=== PATIENT | female | born 1945 | race Caucasian/White ===

== ENCOUNTER 2018-07-28 18:50 | Emergency (ER) | payer MEDICARE, BC ==
[2018-07-28 18:59] VITALS: BP 180/70
[2018-07-28] MEDS ORDERED: Lidocaine 1% 20 ML MDV INJECT ONE (19:15)
[2018-07-28] MEDS ORDERED: Bacitracin/Neomycin/Polymyxin B Oint 0.9 GM U/D Packet TOP ONE (19:15)
[2018-07-28] MEDS ORDERED: Diphtheria,Pertussis(Acell),Tetanus Vaccine 0.5 ML Syringe IM ONE (19:15)
--- NOTE | 2018-07-28 19:43 | EDM.PDOC ---
ED [facility] GENERAL MEDICAL PROBLEM - General Chief Complaint: Laceration Stated Complaint: right lower leg lacertation Time Seen by Provider: 07/28/18 19:10 Source of Information: Reports: Patient History Limitations: Reports: No Limitations - History of Present Illness INITIAL COMMENTS - FREE TEXT/NARRATIVE: Patient presents with laceration to right rodriguez. States slipped getting out of her car and hit her rodriguez on the car door. States did bleed considerably enroute here but admits "she bleeds very easy". Is only on a low dose aspirin daily. Expresses concern as she has had difficulty with wounds healing in the past. Unknown last tetanus. Onset: Today, Sudden Duration: Minutes: Location: Reports: Lower Extremity, Right Quality: Reports: Throbbing Severity: Moderate Context: Reports: Trauma Associated Symptoms: Reports: No Other Symptoms Right Leg Pain Score (Numeric/FACES): 6 - Related Data Allergies Allergy/AdvReac Type Severity Reaction Status Date / Time lisinopril Allergy Cannot Verified 07/28/18 19:01 Remember Penicillins Allergy Cannot Verified 07/28/18 19:01 Remember sauerkraut Allergy Hives Uncoded 07/28/18 19:01 Home Meds: Home Meds Aspirin [Halfprin] 81 mg PO DAILY 07/28/18 [History] Calcium Carbonate/Vitamin D3 [Calcium 600 + Vit D 200] 1 each PO DAILY 07/28/18 [History] Cholecalciferol (Vitamin D3) [Vitamin D3] 1,000 units PO DAILY 07/28/18 [History ] Gabapentin [Neurontin] 200 mg PO 1200 07/28/18 [History] Gabapentin [Neurontin] 600 mg PO TID 07/28/18 [History] Losartan Potassium 100 mg PO DAILY 07/28/18 [History] Oxybutynin 5 mg PO DAILY 07/28/18 [History] atorvaSTATin [Lipitor] 10 mg PO BEDTIME 07/28/18 [History] hydroCHLOROthiazide [Hydrochlorothiazide] 25 mg PO DAILY 07/28/18 [History] metFORMIN HCl [Metformin HCl] 1,000 mg PO BID 07/28/18 [History] Past Medical History Cardiovascular History: Reports: Hypertension (Please see nurses notes for further PMH, FH and Social History) Neurological History: Reports: Neuropathy, Diabetic Endocrine/Metabolic History: Reports: Diabetes, Type II Social & Family History - Tobacco Use Smoking Status *Q: Current Every Day Smoker ED ROS GENERAL - Review of Systems Review Of Systems: See Below Constitutional: Reports: No Symptoms Skin: Reports: Wound Neurological: Reports: No Symptoms Psychiatric: Reports: No Symptoms ED EXAM, SKIN/RASH Exam: See Below Exam Limited By: No Limitations General Appearance: Alert, WD/WN, No Apparent Distress Neurological: Alert, Oriented Skin: Wound/Incision Location, Skin: Other Characteristics: Linear ED SKIN PROCEDURES - Laceration/Wound Repair Right Leg Lac/Wound length In cm: 4 Appearance: Superficial, Linear Distal NVT: Neuro & Vascular Intact Anesthetic Type: Local Local Anesthesia - Lidocaine (Xylocaine): 1% Plain Local Anesthetic Volume: 4cc Exploration/Debridement/Repair: Explored to Base Closed with: Sutures Suture Size: 4-0 Suture Type: Interrupted, Simple Suture Size: 4-0 # of Sutures: 8 Tetanus Status Addressed: Yes Complications: No Course - Vital Signs Last Recorded V/S: Last Vital Signs Temp 97.1 F 07/28/18 18:52 Pulse 82 07/28/18 18:52 Resp 16 07/28/18 18:52 BP 180/70 H 07/28/18 18:52 Pulse Ox 98 07/28/18 18:52 - Orders/Labs/Meds Orders: Active Orders 24 hr Category Date Time Status Vaccines to be Administered [RC] PER UNIT ROUTINE Care 07/28/18 19:16 Active Meds: Medications Discontinued Medications Generic Name Dose Route Start Last Admin Trade Name Freq PRN Reason Stop Dose Admin Diphtheria/Tetanus/Acell Pertussis 0.5 ml 07/28/18 19:15 07/28/18 19:42 Adacel IM 07/28/18 19:16 0.5 ml .ONCE ONE Administration Lidocaine HCl 20 ml 07/28/18 19:15 07/28/18 19:22 Xylocaine 1% INJECT 07/28/18 19:16 20 ml ONETIME ONE Administration Neomycin/Polymyxin/Bacitracin 1 each 07/28/18 19:15 07/28/18 19:22 Triple Antibiotic Oint TOP 07/28/18 19:16 1 each ONETIME ONE Administration Departure - Departure Time of Disposition: 19:40 Disposition: Home, Self-Care 01 Condition: Good Clinical Impression: Broken skin, Laceration of right lower extremity - Discharge Information *PRESCRIPTION DRUG MONITORING PROGRAM REVIEWED*: No *COPY OF PRESCRIPTION DRUG MONITORING REPORT IN PATIENT LIZY: No Instructions: Laceration Care, Adult, [id number] Forms: ED Department Discharge Additional Instructions: 1. Keep leg elevated tonight 2. Ice pack to area frequently tonight 3. Change bandage after 24 hours unless becomes saturated 4. Wound care instruction~ notify us of any redness, swelling, increased drainage or pain 5. Sutures out in 10 days 6. Call with any questions or concerns. - My Orders Last 24 Hours: My Active Orders 07/28/18 19:16 Vaccines to be Administered [RC] PER UNIT ROUTINE - Assessment/Plan Last 24 Hours: My Active Orders 07/28/18 19:16 Vaccines to be Administered [RC] PER UNIT ROUTINE
== END 2018-07-28 20:00 | disposition home or self-care (01) ==
LOC: CC.ED 18:50
DX: S81.811A Laceration without foreign body, right lower leg, initial encounter (principal); E11.40 Type 2 diabetes mellitus with diabetic neuropathy, unspecified; F17.290 Nicotine dependence, other tobacco product, uncomplicated; W22.8XXA Striking against or struck by other objects, initial encounter; Z88.8 Allergy status to other drugs, medicaments and biological substances; Z88.0 Allergy status to penicillin; Z79.82 Long term (current) use of aspirin; Z79.899 Other long term (current) drug therapy; Z79.84 Long term (current) use of oral hypoglycemic drugs
CPT/HCPCS: 12002; 90471; 90715; 99282; 99283

== ENCOUNTER 2019-01-03 14:53 | Emergency (ER) | payer MEDICARE, BC ==
--- NOTE | 2019-01-03 15:33 | EDM.PDOC ---
ED [facility] GENERAL MEDICAL PROBLEM - General Chief Complaint: Chest Pain Stated Complaint: CP Time Seen by Provider: 01/03/19 15:00 Source of Information: Reports: Patient History Limitations: Reports: No Limitations - History of Present Illness INITIAL COMMENTS - FREE TEXT/NARRATIVE: Cece is a pleasant 73 year old female who presents to the ED via [facility] with c/o an episode of chest pain, weakness, and diaphoresis. She reports she was sitting on a bar stool eating brunch, when she noticed her vision became "blurry and bright" and she became very sweaty. She reports she had some left sided chest pain. Apparently O2 was noted to be in upper 80s by bystander who has O2 sat machine. EMS was called. She reports she is feeling much better now. Does have slight left sided chest pain, but reports she is no longer having any other symptoms. 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 Reports she had pizza for supper last night and did have pretty significant GERD. She reports she takes Pepcid COmplete for this when needed. Onset: Today, Sudden Duration: Resolved Prior to Arrival Location: Reports: Head, Chest Associated Symptoms: Reports: Chest Pain, Diaphoresis, Shortness of Breath, Weakness. Denies: Confusion, Cough, cough w sputum, Fever/Chills, Headaches, Loss of Appetite, Malaise, Nausea/Vomiting, Rash, Seizure, Syncope Chest Pain Score (Numeric/FACES): 3 - Related Data Allergies Allergy/AdvReac Type Severity Reaction Status Date / Time lisinopril Allergy Cannot Verified 01/03/19 14:56 Remember Penicillins Allergy Cannot Verified 01/03/19 14:56 Remember sauerkraut Allergy Hives Uncoded 01/03/19 14:56 Home Meds: Home Meds Aspirin [Halfprin] 81 mg PO DAILY 07/28/18 [History] Calcium Carbonate/Vitamin D3 [Calcium 600 + Vit D 200] 1 each PO DAILY 07/28/18 [History] Cholecalciferol (Vitamin D3) [Vitamin D3] 1,000 units PO DAILY 07/28/18 [History ] Gabapentin [Neurontin] 600 mg PO BID 07/28/18 [History] Losartan Potassium 100 mg PO DAILY 07/28/18 [History] Oxybutynin 5 mg PO DAILY 07/28/18 [History] atorvaSTATin [Lipitor] 10 mg PO BEDTIME 07/28/18 [History] metFORMIN HCl [Metformin HCl] 1,000 mg PO BID 07/28/18 [History] Fluocinonide [Lidex 0.05% Crm] 0.05 mg TOP BID 01/03/19 [History] Furosemide 20 mg PO DAILY 01/03/19 [History] predniSONE [Prednisone] 30 mg PO DAILY 01/03/19 [History] Past Medical History HEENT History: Reports: Cataract Cardiovascular History: Reports: High Cholesterol, Hypertension [employer] OPERATOR History: Reports: Musculoskeletal History: Reports: Neck Pain, Chronic Neurological History: Reports: Neuropathy, Diabetic Endocrine/Metabolic History: Reports: Diabetes, Type II Dermatologic History: Reports: Other (See Below) Other Dermatologic History: EBA - Past Surgical History HEENT Surgical History: Reports: Cataract Surgery GI Surgical History: Reports: Cholecystectomy Female Surgical History: Reports: Section, D&C Social & Family History - Tobacco Use Smoking Status *Q: Current Every Day Smoker Years of Tobacco use: 50 Packs/Tins Daily: 1 - Caffeine Use Caffeine Use: Reports: Coffee ED ROS GENERAL - Review of Systems Review Of Systems: ROS reveals no pertinent complaints other than HPI. ED EXAM, GENERAL - Physical Exam Exam: See Below Exam Limited By: No Limitations General Appearance: Alert, WD/WN, No Apparent Distress Eye Exam: Bilateral Eye: EOMI, Normal Fundi, Normal Inspection, PERRL Ears: Normal External Exam, Normal Canal, Hearing Grossly Normal, Normal TMs Nose: Normal Inspection, Normal Mucosa, No Blood Throat/Mouth: Normal Inspection, Normal Lips, Normal Teeth, Normal Gums, Normal Oropharynx, Normal Voice, No Airway Compromise Head: Atraumatic, Normocephalic Neck: Normal Inspection, Supple, Non-Tender, Full Range of Motion Respiratory/Chest: No Respiratory Distress, Lungs Clear, No Accessory Muscle Use , Chest Non-Tender, Decreased Breath Sounds Cardiovascular: Normal Peripheral Pulses, Regular Rate, Rhythm, No Edema, No Gallop, No JVD, No Murmur, No Rub GI/Abdominal: Normal Bowel Sounds, Soft, No Organomegaly, No Distention, No Abnormal Bruit, No Mass, Tender (tenderness to epigastric area) Back Exam: Normal Inspection, Full Range of Motion. No: CVA Tenderness (L), CVA Tenderness (R) Extremities: Normal Inspection, Normal Range of Motion, Non-Tender, Normal Capillary Refill, No Pedal Edema Neurological: Alert, Oriented, CN II-XII Intact, Normal Cognition, Normal Gait, Normal Reflexes, No Motor/Sensory Deficits Psychiatric: Normal Affect, Normal Mood Skin Exam: Warm, Dry, Intact Lymphatic: No Adenopathy Course - Vital Signs Last Recorded V/S: Last Vital Signs Temp 96.4 F 01/03/19 14:58 Pulse 66 01/03/19 15:24 Resp 16 01/03/19 15:24 BP 122/78 01/03/19 15:39 Pulse Ox 97 01/03/19 15:24 - Orders/Labs/Meds Orders: Active Orders 24 hr Category Date Time Status Chest 2V [CR] Stat Exams 01/03/19 15:02 Taken Labs: Laboratory Tests 01/03/19 01/03/19 01/03/19 Range/Units 15:12 15:12 15:12 WBC 14.3 H (5.0-10.0) 10^3/uL RBC 4.59 (4.00-5.50) 10^6/uL Hgb 15.0 (12.0-16.0) g/dL Hct 43.0 (37.0-47.0) % MCV 93.7 (82.0-94.0) fL MCH 32.7 H (27.0-32.0) pg MCHC 34.9 (33.0-38.0) g/dL RDW Coeff of Dirk 13.6 (11.0-15.0) % Plt Count 269 (150-400) 10^3/uL Neut % (Auto) 72.9 (35-85) % Lymph % (Auto) 17.1 (10-55) % [place] % (Auto) 8.9 (0-16) % Eos % (Auto) 0.8 (0-5) % Baso % (Auto) 0.3 (0-3) % Neut # (Auto) 10.43 H (1.80-7.00) 10^3/uL Lymph # (Auto) 2.44 (1.00-4.80) 10^3/uL [place] # (Auto) 1.27 H (0.00-0.80) 10^3/uL Eos # (Auto) 0.11 (0.00-0.45) 10^3/uL Baso # (Auto) 0.04 10^3/uL PT 9.6 L (9.7-12.3) SEC INR 0.93 (0.92-1.18) Sodium 133 L (136-145) mEq/L Potassium 4.6 (3.5-5.0) mEq/L Chloride 96 L (98-106) mEq/L Carbon Dioxide 29 (21-32) mmol/L BUN 20 H (7-18) mg/dL Creatinine 1.2 H (0.6-1.0) mg/dL Est Cr Clr Drug Dosing 44.29 mL/min Estimated GFR (MDRD) 44 L (>=60) mL/min Glucose 135 H (75-99) mg/dL Calcium 10.2 H (8.4-10.1) mg/dL Lactate Dehydrogenase 161 (100-190) U/L Creatine Kinase 66 (21-215) U/L Troponin I < 0.017 (0.00-0.06) ng/mL Meds: Medications Discontinued Medications Generic Name Dose Route Start Last Admin Trade Name Freq PRN Reason Stop Dose Admin Sodium Chloride 1,000 mls @ 999 mls/hr 01/03/19 15:44 01/03/19 16:14 Normal Saline IV 01/03/19 16:44 Not Given .BOLUS ONE Sodium Chloride 500 mls @ 999 mls/hr 01/03/19 15:52 01/03/19 16:02 Normal Saline IV 01/03/19 16:14 999 mls/hr .BOLUS ONE Administration Sodium Chloride Confirm 01/03/19 15:42 01/03/19 16:14 Normal Saline Administered 01/03/19 15:43 Not Given Dose 500 mls @ as directed .ROUTE .STK-MED ONE - Re-Assessments/Exams Free Text/Narrative Re-Assessment/Exam: 01/03/19 15:59 Discussed lab, EKG, and CXR results with patient. Labs stable except mildly decreased sodium and chloride. CXR no acute findings. EKG NSR. Recommend patient stay for 1 L NS bolus. Does not wish to stay. Patient agreeable to 500 mL bolus. Will discharge home following infusion. Departure - Departure Time of Disposition: 16:44 Disposition: Home, Self-Care 01 Condition: Good Clinical Impression: Vasovagal episode, Dehydration, GERD (gastroesophageal reflux disease) Instructions: Dehydration, Adult, [id number] Referrals: Toya Perez MD [Primary Care Provider] - Forms: ED Department Discharge Additional Instructions: - Rest and take it easy today - Drink at least 64 oz water daily - Recommend starting omeprazole (Prilosec) daily while on prednisone - Recommend follow up with PCP in 1 week to recheck labs - Return to ED for any emergent needs - My Orders Last 24 Hours: My Active Orders 01/03/19 15:02 Chest 2V [CR] Stat - Assessment/Plan Last 24 Hours: My Active Orders 01/03/19 15:02 Chest 2V [CR] Stat
[2019-01-03 15:37] LABS: CHLORIDE,CL 96 mEq/L (98-106); SODIUM,NA 133 mEq/L (136-145)
[2019-01-03] MEDS: Sodium Chloride 0.9% 500 ML IV ONE (16:02)
[2019-01-03] MEDS: Sodium Chloride 0.9% 500 ML ONE (16:14)
[2019-01-03] MEDS: Sodium Chloride 0.9% 1,000 ML IV ONE (16:14)
[2019-01-03 16:16] VITALS: BP 122/78
== END 2019-01-03 16:45 | disposition home or self-care (01) ==
LOC: CC.ED 14:53
DX: K21.9 Gastro-esophageal reflux disease without esophagitis (principal); E86.0 Dehydration; F17.210 Nicotine dependence, cigarettes, uncomplicated; I10 Essential (primary) hypertension; E78.00 Pure hypercholesterolemia, unspecified; E11.40 Type 2 diabetes mellitus with diabetic neuropathy, unspecified; Z79.84 Long term (current) use of oral hypoglycemic drugs; Z79.82 Long term (current) use of aspirin; Z79.899 Other long term (current) drug therapy; Z88.0 Allergy status to penicillin; Z91.09 Other allergy status, other than to drugs and biological substances; Z91.018 Allergy to other foods
CPT/HCPCS: 36415; 71046; 80048; 82550; 83615; 84484; 85025; 85610; 93005; 99284; 99285-25; J7030

== ENCOUNTER 2019-02-03 18:51 | Inpatient (IN) | payer MEDICARE, BC ==
[2019-02-03] MEDS: Sodium Chloride 0.9% 1,000 ML IV SCH (22:14)
[2019-02-03] MEDS: Enoxaparin 40 MG/0.4 ML Syringe SUBCUT SCH (22:15)
[2019-02-03] MEDS: Nicotine 21 MG/24 Hr Patch TRDERM SCH (23:08)
[2019-02-04] MEDS: Sodium Chloride 0.9% 1,000 ML IV SCH ×2 (04:40→15:52)
[2019-02-04] MEDS: Ondansetron 4 MG Tab.DIS PO PRN ×3 (04:43→18:21)
[2019-02-04] MEDS: Pantoprazole 40 MG Tab.CR PO SCH (06:13)
[2019-02-04] MEDS: Nicotine 21 MG/24 Hr Patch TRDERM SCH (07:44)
[2019-02-04] MEDS: predniSONE 5 MG Tab PO SCH (07:45)
[2019-02-04] MEDS: Gabapentin 300 MG Cap PO SCH ×2 (07:45→20:14)
[2019-02-04] MEDS: Oxybutynin 5 MG Tab PO SCH (07:45)
[2019-02-04] MEDS ORDERED: Magnesium Sulfate/D5W 2 GM in Premix Bag 1 BAG IV ONE ×2 (08:38→16:40)
[2019-02-04] MEDS: Doxycycline 100 MG Tab PO SCH ×2 (08:54→20:15)
[2019-02-04] MEDS: TACROLIMUS TOP SCH ×2 (08:54→20:19)
[2019-02-04] MEDS: NIACINAMIDE 500 MG PO SCH ×3 (08:54→20:19)
[2019-02-04] MEDS ORDERED: Barium Sulfate Oral Susp 450 ML Bottle PO ONE (09:06)
[2019-02-04] MEDS ORDERED: Iopamidol 755 Mg/ML 200 ML Bottle IV ONE (09:06)
[2019-02-04] MEDS: Calcium Carbonate 500 MG Tab.Chew PO SCH (11:43)
--- NOTE | 2019-02-04 19:13 | PCM.PN ---
- General Info Date of Service: 02/04/19 Admission Dx/Problem (Free Text): Hyponatremia Subjective Update: Cece is a 73 year old female who was admitted to the hospital yesterday evening for hyponatremia. Had reportedly been dizzy/off balance since about Saturday. She reports she did have one fall where she face planted. She reports when she was ambulating it seemed as though she would just lean forward. She reports she has also had weakness, nausea, and vomiting. Has had occasional diarrhea. Reports she has had very decreased appetite and foods just don't taste good for some time now. Reports she does have chronic cough, which seems to be worsening. She has been doctoring for an autoimmune skin condition. Was started on metolazone a few months back after diagnosis of her skin disorder. Had previously been on Lasix, but this was switched to metolazone as there was concern this could be worsening her skin condition. She reports this morning she has had ongoing nausea. Does not have an appetite. Does admit to feeling very weak and unsteady. No significant abdominal pain, just a generalized achy stomach. She has been afebrile. Functional Status: Reports: Pain Controlled, Tolerating Diet, Ambulating, Urinating. Denies: New Symptoms - Review of Systems General: Reports: Weakness, Malaise. Denies: Fever, Appetite HEENT: Reports: No Symptoms Pulmonary: Reports: Shortness of Breath, Cough, Sputum. Denies: Pleuritic Chest Pain Cardiovascular: Reports: Dyspnea on Exertion, Lightheadedness. Denies: Chest Pain, Palpitations, Edema Gastrointestinal: Reports: Abdominal Pain, Decreased Appetite, Diarrhea, Nausea , Vomiting. Denies: Hematochezia, Melena Genitourinary: Reports: No Symptoms. Denies: Dysuria, Frequency, Urgency Musculoskeletal: Reports: No Symptoms Skin: Reports: Rash (bullus rash to BUE) Neurological: Reports: Dizziness, Weakness. Denies: Confusion, Headache, Numbness, Seizure, Syncope, Tingling, Difficulty Walking Psychiatric: Denies: Confusion - Patient Data Vitals - Most Recent: Last Vital Signs Temp 97.3 F 02/04/19 16:00 Pulse 61 02/04/19 16:00 Resp 16 02/04/19 16:00 BP 111/52 L 02/04/19 16:00 Pulse Ox 96 02/04/19 16:00 Weight - Most Recent: 229 lb 3.2 oz I&O - Last 24 Hours: Intake & Output 02/04/19 02/04/19 02/04/19 06:59 14:59 22:59 Intake Total 804 1000 Balance 804 1000 Lab Results Last 24 Hours: Laboratory Results - last 24 hr 02/04/19 02/04/19 02/04/19 Range/Units 07:00 07:31 15:03 Sodium 119 L* 117 L* (136-145) mEq/L Potassium 3.7 3.6 (3.5-5.0) mEq/L Chloride 82 L 82 L (98-106) mEq/L Carbon Dioxide 33 H 29 (21-32) mmol/L BUN 14 11 (7-18) mg/dL Creatinine 1.2 H 1.0 (0.6-1.0) mg/dL Est Cr Clr Drug Dosing 44.29 53.14 mL/min Estimated GFR (MDRD) 44 L 55 L (>=60) mL/min Glucose 83 110 H D (75-99) mg/dL POC Glucose 79 (75-105) mg/dl Calcium 9.1 8.4 (8.4-10.1) mg/dL Magnesium 1.1 L 1.5 L (1.8-2.4) mg/dL Med Orders - Current: Current Medications Acetaminophen (Tylenol) 650 mg PO Q4H PRN PRN Reason: Pain (Mild 1-3)/fever Aspirin (Halfprin) 81 mg PO BEDTIME [facility] Atorvastatin Calcium (Lipitor) 10 mg PO BEDTIME [facility] Calcium Carbonate/Glycine (Tums) 500 mg PO WITHLUNCH [facility] Last Admin: 02/04/19 11:43 Dose: 500 mg Doxycycline Monohydrate (Vibramycin) 100 mg PO BID [facility] Last Admin: 02/04/19 08:54 Dose: 100 mg Enoxaparin Sodium (Lovenox) 40 mg SUBCUT Q24H [facility] Last Admin: 02/03/19 22:15 Dose: 40 mg Gabapentin (Neurontin) 600 mg PO BID [facility] Last Admin: 02/04/19 07:45 Dose: 600 mg Losartan Potassium (Cozaar) 100 mg PO BEDTIME [facility] Nicotine (Habitrol) 21 mg TRDERM DAILY [facility] Last Admin: 02/04/19 07:44 Dose: 21 mg Ownmed Niacinamide [Niacin] 500 Mg 500 mg PO TID [facility] Last Admin: 02/04/19 14:06 Dose: 500 mg Ownemed Tacrolimus [Protopic ] 1 Applic 1 applic TOP BID [facility] Last Admin: 02/04/19 08:54 Dose: 1 applic Ondansetron HCl (Zofran Odt) 4 mg PO Q6H PRN PRN Reason: Nausea Last Admin: 02/04/19 18:21 Dose: 4 mg Oxybutynin Chloride (Oxybutynin) 5 mg PO DAILY [facility] Last Admin: 02/04/19 07:45 Dose: 5 mg Pantoprazole Sodium (Protonix) 40 mg PO ACBRK [facility] Last Admin: 02/04/19 06:13 Dose: 40 mg Prednisone (Prednisone) 5 mg PO DAILY [facility] Stop: 02/08/19 23:59 Last Admin: 02/04/19 07:45 Dose: 5 mg Discontinued Medications Barium Sulfate (Readi-Cat 2) 900 ml PO ONETIME ONE Stop: 02/04/19 09:07 Last Admin: 02/04/19 11:17 Dose: 900 ml Sodium Chloride (Normal Saline) 1,000 mls @ 125 mls/hr IV ASDIRECTED [facility] Last Admin: 02/04/19 15:52 Dose: 125 mls/hr Magnesium Sulfate/Dextrose 2 (gm/ Premix) 200 mls @ 100 mls/hr IV ONETIME ONE Stop: 02/04/19 10:37 Last Admin: 02/04/19 08:55 Dose: 100 mls/hr Magnesium Sulfate/Dextrose 2 (gm/ Premix) 200 mls @ 100 mls/hr IV ONETIME ONE Stop: 02/04/19 18:39 Last Admin: 02/04/19 16:52 Dose: 100 mls/hr Iopamidol (Isovue-370 (76%)) 160 ml IV ONETIME ONE Stop: 02/04/19 09:07 Last Admin: 02/04/19 11:17 Dose: 160 ml - Exam Quality Assessment: DVT Prophylaxis General: Alert, Oriented, No Acute Distress HEENT: Pupils Equal, Pupils Reactive, EOMI, Mucous Membr. Moist/[place] Neck: Supple Lungs: Decreased Breath Sounds, Wheezing Cardiovascular: Regular Rate, Regular Rhythm GI/Abdominal Exam: Normal Bowel Sounds, Soft, Tender (mild diffuse tenderness). No: Distended, Guarding, Rebound Back Exam: Normal Inspection, Full Range of Motion. No: CVA Tenderness (L), CVA Tenderness (R) Extremities: Normal Inspection, Normal Range of Motion, Non-Tender, Normal Capillary Refill, Pedal Edema (1+) Skin: Other (blistering to BUE) Neurological: No New Focal Deficit Psy/Mental Status: Alert, Normal Affect, Normal Mood - Problem List & Annotations (1) Hyponatremia SNOMED Code(s): 84089042 Code(s): E87.1 - HYPO-OSMOLALITY AND HYPONATREMIA Status: Acute Current Visit: Yes (2) Hypomagnesemia SNOMED Code(s): 440293152 Code(s): E83.42 - HYPOMAGNESEMIA Status: Acute Current Visit: Yes - Problem List Review Problem List Initiated/Reviewed/Updated: Yes - My Orders Last 24 Hours: My Active Orders 02/04/19 08:40 Abdomen Pelvis w Cont [CT] Routine Chest w Cont [CT] Routine 02/04/19 08:41 Head wo Cont [CT] Routine 02/04/19 16:54 Intake and Output [RC] 0600,1800 02/04/19 Dinner Fluid Restriction [DIET] 02/05/19 06:00 MAGNESIUM [CHEM] Routine - Assessment Assessment:: Hyponatremia Hypomagnesemia - Plan Plan:: Na slightly improved at 119 this morning. Up from 115 on admit. Continued NS IVF throughout afternoon. Magnesium low at 1.1. Initially given 2 g magnesium. Electrolytes rechecked at 4 pm. Na was down to 117 and magnesium remained low at 1.5. Patient given additional 2 g magnesium. Will saline lock IV and put patient on 1500 mL fluid restriction. Patient is alert and oriented. Normal mentation. Telemetry has remained NSR. Continue to hold metolazone. We will recheck labs in am. CT head, chest, and abdomen/pelvis completed today with no real acute findings. Does have multiple small lung nodules, otherwise negative. Dr. Gordillo also rounded on patient and is agreeable with plan.
[2019-02-04] MEDS: Losartan 100 MG Tab PO SCH (20:13)
[2019-02-04] MEDS: Aspirin 81 MG Tab.EC PO SCH (20:14)
[2019-02-04] MEDS: atorvaSTATin 10 MG Tab PO SCH (20:14)
[2019-02-04] MEDS: Enoxaparin 40 MG/0.4 ML Syringe SUBCUT SCH (20:25)
[2019-02-05] MEDS: Ondansetron 4 MG Tab.DIS PO PRN ×3 (03:44→21:32)
[2019-02-05] MEDS: Acetaminophen 325 MG Tab PO PRN ×2 (05:55→13:44)
[2019-02-05] MEDS: Pantoprazole 40 MG Tab.CR PO SCH (06:00)
[2019-02-05] MEDS: predniSONE 5 MG Tab PO SCH (08:00)
[2019-02-05] MEDS: Oxybutynin 5 MG Tab PO SCH (08:00)
[2019-02-05] MEDS: Gabapentin 300 MG Cap PO SCH ×2 (08:00→21:25)
[2019-02-05] MEDS: Doxycycline 100 MG Tab PO SCH ×2 (08:00→21:25)
[2019-02-05] MEDS: Nicotine 21 MG/24 Hr Patch TRDERM SCH (08:07)
[2019-02-05] MEDS: TACROLIMUS TOP SCH ×2 (08:09→21:26)
[2019-02-05] MEDS: NIACINAMIDE 500 MG PO SCH ×3 (08:16→21:28)
[2019-02-05] MEDS ORDERED: Potassium Chloride 20 MEQ in Premix Bag 1 BAG IV ONE (09:09)
[2019-02-05] MEDS ORDERED: Magnesium Sulfate/D5W 2 GM in Premix Bag 1 BAG IV ONE (09:09)
[2019-02-05] MEDS: Calcium Carbonate 500 MG Tab.Chew PO SCH (12:14)
[2019-02-05] MEDS ORDERED: Cholecalciferol (Vitamin D3) 25 MCG Tab PO SCH (12:30)
--- NOTE | 2019-02-05 17:15 | PCM.PN ---
- General Info Date of Service: 02/05/19 Admission Dx/Problem (Free Text): Hyponatremia Subjective Update: Cece is a 73 year old female who was admitted to the hospital 02/03 with hyponatremia. She reports she is starting to feel somewhat better. Is less nauseated. Continues to have a decreased appetite. Does report that she has been dealing with an autoimmune skin disorder, epidermolysis bullosa acquisita. Has had worsening of this to her bilateral arms overnight. She reports she treats this with topical Tacrolimus. Has currently been using 0.1% tacrolimus, but does report when her rash was bad she was using 0.5% tacrolimus. She reports burning pain to these areas. Functional Status: Reports: Pain Controlled, Tolerating Diet, Ambulating, Urinating, New Symptoms (skin rash to bilatearl arms) - Review of Systems General: Reports: Weakness, Fatigue, Malaise. Denies: Fever, Chills HEENT: Reports: No Symptoms Pulmonary: Reports: Cough. Denies: Shortness of Breath, Pleuritic Chest Pain, Sputum, Wheezing Cardiovascular: Denies: Chest Pain, Dyspnea on Exertion, Edema, Lightheadedness Gastrointestinal: Reports: Decreased Appetite, Nausea. Denies: Abdominal Pain, Diarrhea, Vomiting Genitourinary: Reports: No Symptoms Musculoskeletal: Reports: Arm Pain Skin: Reports: Rash Neurological: Reports: Dizziness, Weakness. Denies: Confusion, Headache, Numbness, Tingling Psychiatric: Reports: No Symptoms - Patient Data Vitals - Most Recent: Last Vital Signs Temp 97.2 F 02/05/19 11:57 Pulse 61 02/05/19 11:57 Resp 18 02/05/19 11:57 BP 111/56 L 02/05/19 11:57 Pulse Ox 96 02/05/19 11:57 Weight - Most Recent: 229 lb 3.2 oz I&O - Last 24 Hours: Intake & Output 02/05/19 02/05/19 02/05/19 06:59 14:59 22:59 Intake Total 0 Balance 0 Lab Results Last 24 Hours: Laboratory Results - last 24 hr 02/04/19 02/05/19 02/05/19 Range/Units 17:03 05:11 07:56 Sodium 123 L* (136-145) mEq/L Potassium 3.4 L (3.5-5.0) mEq/L Chloride 84 L (98-106) mEq/L Carbon Dioxide 30 (21-32) mmol/L BUN 7 (7-18) mg/dL Creatinine 1.0 (0.6-1.0) mg/dL Est Cr Clr Drug Dosing 53.14 mL/min Estimated GFR (MDRD) 55 L (>=60) mL/min Glucose 95 (75-99) mg/dL POC Glucose 93 103 (75-105) mg/dl Calcium 8.7 (8.4-10.1) mg/dL Magnesium 1.3 L (1.8-2.4) mg/dL Med Orders - Current: Current Medications Acetaminophen (Tylenol) 650 mg PO Q4H PRN PRN Reason: Pain (Mild 1-3)/fever Last Admin: 02/05/19 13:44 Dose: 650 mg Aspirin (Halfprin) 81 mg PO BEDTIME [facility] Last Admin: 02/04/19 20:14 Dose: 81 mg Atorvastatin Calcium (Lipitor) 10 mg PO BEDTIME [facility] Last Admin: 02/04/19 20:14 Dose: 10 mg Calcium Carbonate/Glycine (Tums) 500 mg PO WITHLUNCH [facility] Last Admin: 02/05/19 12:14 Dose: 500 mg Cholecalciferol (Vitamin D3) 25 mcg PO WITHLUNCH [facility] Last Admin: 02/05/19 12:30 Dose: 25 mcg Doxycycline Monohydrate (Vibramycin) 100 mg PO BID [facility] Last Admin: 02/05/19 08:00 Dose: 100 mg Enoxaparin Sodium (Lovenox) 40 mg SUBCUT Q24H [facility] Last Admin: 02/04/19 20:25 Dose: 40 mg Gabapentin (Neurontin) 600 mg PO BID [facility] Last Admin: 02/05/19 08:00 Dose: 600 mg Losartan Potassium (Cozaar) 100 mg PO BEDTIME [facility] Last Admin: 02/04/19 20:13 Dose: 100 mg Magnesium Oxide (Magnesium Oxide) 250 mg PO BID [facility] Nicotine (Habitrol) 21 mg TRDERM DAILY [facility] Last Admin: 02/05/19 08:07 Dose: 21 mg Ownmed Niacinamide [Niacin] 500 Mg 500 mg PO TID [facility] Last Admin: 02/05/19 13:39 Dose: 500 mg Ownemed Tacrolimus [Protopic ] 1 Applic 1 applic TOP BID [facility] Last Admin: 02/05/19 08:09 Dose: 1 applic Ondansetron HCl (Zofran Odt) 4 mg PO Q6H PRN PRN Reason: Nausea Last Admin: 02/05/19 12:50 Dose: 4 mg Oxybutynin Chloride (Oxybutynin) 5 mg PO DAILY [facility] Last Admin: 02/05/19 08:00 Dose: 5 mg Pantoprazole Sodium (Protonix) 40 mg PO ACBRK [facility] Last Admin: 02/05/19 06:00 Dose: 40 mg Prednisone (Prednisone) 5 mg PO DAILY [facility] Stop: 02/08/19 23:59 Last Admin: 02/05/19 08:00 Dose: 5 mg Discontinued Medications Barium Sulfate (Readi-Cat 2) 900 ml PO ONETIME ONE Stop: 02/04/19 09:07 Last Admin: 02/04/19 11:17 Dose: 900 ml Sodium Chloride (Normal Saline) 1,000 mls @ 125 mls/hr IV ASDIRECTED [facility] Last Admin: 02/04/19 15:52 Dose: 125 mls/hr Magnesium Sulfate/Dextrose 2 (gm/ Premix) 200 mls @ 100 mls/hr IV ONETIME ONE Stop: 02/04/19 10:37 Last Admin: 02/04/19 08:55 Dose: 100 mls/hr Magnesium Sulfate/Dextrose 2 (gm/ Premix) 200 mls @ 100 mls/hr IV ONETIME ONE Stop: 02/04/19 18:39 Last Admin: 02/04/19 16:52 Dose: 100 mls/hr Magnesium Sulfate/Dextrose 2 (gm/ Premix) 200 mls @ 100 mls/hr IV ONETIME ONE Stop: 02/05/19 11:08 Last Admin: 02/05/19 09:44 Dose: 100 mls/hr Potassium Chloride 20 meq/ (Premix) 100 mls @ 25 mls/hr IV ONETIME ONE Stop: 02/05/19 13:08 Last Admin: 02/05/19 12:07 Dose: 25 mls/hr Iopamidol (Isovue-370 (76%)) 160 ml IV ONETIME ONE Stop: 02/04/19 09:07 Last Admin: 02/04/19 11:17 Dose: 160 ml - Exam Quality Assessment: DVT Prophylaxis General: Alert, Oriented, No Acute Distress Neck: Supple Lungs: Normal Respiratory Effort, Decreased Breath Sounds Cardiovascular: Regular Rate, Regular Rhythm GI/Abdominal Exam: Normal Bowel Sounds, Soft, Non-Tender, No Organomegaly, No Distention, No Abnormal Bruit, No Mass, Pelvis Stable Extremities: Arm Pain (bilateral) Skin: Rash (multiple bullosa to BUE) Wound/Incisions: Dressing Dry and Intact Neurological: No New Focal Deficit Psy/Mental Status: Alert, Normal Affect, Normal Mood - Problem List & Annotations (1) SIADH (syndrome of inappropriate ADH production) SNOMED Code(s): 35163044 Code(s): E22.2 - SYNDROME OF INAPPROPRIATE SECRETION OF ANTIDIURETIC HORMONE Status: Acute Current Visit: Yes (2) Hyponatremia SNOMED Code(s): 32468687 Code(s): E87.1 - HYPO-OSMOLALITY AND HYPONATREMIA Status: Acute Current Visit: Yes (3) Hypomagnesemia SNOMED Code(s): 627702402 Code(s): E83.42 - HYPOMAGNESEMIA Status: Acute Current Visit: Yes (4) Epidermolysis bullosa acquisita SNOMED Code(s): 9811687 Code(s): L12.30 - ACQUIRED EPIDERMOLYSIS BULLOSA, UNSPECIFIED Status: Chronic Current Visit: Yes - Problem List Review Problem List Initiated/Reviewed/Updated: Yes - My Orders Last 24 Hours: My Active Orders 02/04/19 16:54 Intake and Output [RC] 0600,1800 02/04/19 Dinner Fluid Restriction [DIET] 02/05/19 12:30 Cholecalciferol (Vitamin D3) [Vitamin D3] 25 mcg PO WITHLUNCH 02/05/19 20:00 Magnesium Oxide 250 mg PO BID - Assessment Assessment:: SIADH Hyponatremia Hypomagnesemia Epidermolysis bullosa acquisita - Plan Plan:: Na slightly improved at 119 this morning. Up from 115 on admit. Continued NS IVF throughout afternoon. Magnesium low at 1.1. Initially given 2 g magnesium. Electrolytes rechecked at 4 pm. Na was down to 117 and magnesium remained low at 1.5. Patient given additional 2 g magnesium. Will saline lock IV and put patient on 1500 mL fluid restriction. Patient is alert and oriented. Normal mentation. Telemetry has remained NSR. Continue to hold metolazone. We will recheck labs in am. CT head, chest, and abdomen/pelvis completed today with no real acute findings. Does have multiple small lung nodules, otherwise negative. Dr. Gordillo also rounded on patient and is agreeable with plan. 02-05-2019 Na improved to 123 with 1500 mL fluid restriction. Suspect SIADH, likely from metolazone use. Continue to hold metolazone. Telemetry remains NSR. Patient has remained A & O. Nausea slightly improved. Continues to feel weak. Magnesium low again this morning at 1.3. Will replace with 2 g IV, as well as start oral magnesium supplements. K slightly low this morning also at 3.4. Will replace with 20 meq KCL IV. Discussed risk and safety concerns with low sodium. Will recheck labs in am. Anticipate discharge home in am if sodium continues to improve. Patient may use 0.5% tacrolimus to bilateral arm rash. Dr. Gordillo also rounded on patient and is agreeable with plan.
[2019-02-05] MEDS: Enoxaparin 40 MG/0.4 ML Syringe SUBCUT SCH (21:24)
[2019-02-05] MEDS: Aspirin 81 MG Tab.EC PO SCH (21:25)
[2019-02-05] MEDS: atorvaSTATin 10 MG Tab PO SCH (21:25)
[2019-02-05] MEDS: Losartan 100 MG Tab PO SCH (21:29)
[2019-02-06] MEDS: Ondansetron 4 MG Tab.DIS PO PRN (03:32)
[2019-02-06 03:35] VITALS: PULSE 70
[2019-02-06] MEDS: Pantoprazole 40 MG Tab.CR PO SCH ×2 (07:52→08:40)
[2019-02-06] MEDS: TACROLIMUS TOP SCH (07:52)
[2019-02-06] MEDS: predniSONE 5 MG Tab PO SCH (07:53)
[2019-02-06] MEDS: Oxybutynin 5 MG Tab PO SCH (07:53)
[2019-02-06] MEDS: Nicotine 21 MG/24 Hr Patch TRDERM SCH (07:53)
[2019-02-06] MEDS: Doxycycline 100 MG Tab PO SCH (07:53)
[2019-02-06] MEDS: Gabapentin 300 MG Cap PO SCH (07:53)
[2019-02-06] MEDS: NIACINAMIDE 500 MG PO SCH (07:55)
[2019-02-06] MEDS ORDERED: Magnesium Sulfate/D5W 2 GM in Premix Bag 1 BAG IV ONE (08:20)
--- NOTE | 2019-02-06 08:45 | PCM.DCSUM1 ---
Discharge Summary - Hospital Course Free Text/Narrative:: Patient presented to clinic with ongoing nausea for nearly a month. Had been on Protonix and Carafate for 2 weeks after being seen to rule out gastritis as source of nausea. Had not felt any improvement. 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 Does feel the meds had helped up until recently. She does find relief of the nausea with Zofran. Labs were drawn in the clinic, results noting sodium to be 115. Admitted for fluid restriction, IV normal saline, salt tablets. CT scan of chest, abdomen and pelvis noted. Diagnosis: Stroke: No Modified Any Scale: No Symptoms at All Modified Any Scale Score: 0 - Discharge Data Discharge Date: 02/06/19 Discharge Disposition: Home, Self-Care 01 Condition: Fair - Referral to Home Health Primary Care Physician: GISELE Rodrigues - Patient Summary/Data Complications: none Hospital Course: Patient is feeling better. Does still have occasional nausea, corrected with Zofran. Patient did contact [facility] and spoke with them regarding her meds and labs. As she is noting new blisters on her arms, legs and abdomen, they did suggest she increase her prednisone back to 10 mg daily. Labs have improved , sodium now up to 127. Magnesium was very low at 1.1. Has been given several doses of IV magnesium, correcting level to 1.3 to 1.5. Potassium normal, creatinine normal. CT scans of abdomen, pelvis and chest essentially unremarkable. Metolazone stopped as concerns for SIADH. Patient will follow up in one week with Dr. Perez and have labs drawn. Is to keep scheduled appointment at [facility] in February as planned. Hold diuretics. Fluid restriction at 2000 ml. Continue magnesium twice per day. - Patient Instructions Diet: Diabetic Diet Activity: As Tolerated - Discharge Plan *PRESCRIPTION DRUG MONITORING PROGRAM REVIEWED*: No *COPY OF PRESCRIPTION DRUG MONITORING REPORT IN PATIENT LIZY: No Prescriptions/Med Rec: Magnesium Oxide 250 mg PO BID #60 tablet Pantoprazole [ProTONIX] 40 mg PO ACBRK #30 tab.cr Home Medications: Home Meds Aspirin [Halfprin] 81 mg PO BEDTIME 07/28/18 [History] Cholecalciferol (Vitamin D3) [Vitamin D3] 1,000 units PO DAILY 07/28/18 [History ] Gabapentin [Neurontin] 600 mg PO BID 07/28/18 [History] Losartan Potassium 100 mg PO BEDTIME 07/28/18 [History] Oxybutynin 5 mg PO DAILY 07/28/18 [History] atorvaSTATin [Lipitor] 10 mg PO BEDTIME 07/28/18 [History] metFORMIN HCl [Metformin HCl] 1,000 mg PO BID 07/28/18 [History] Calcium Carbonate [Calcium] 500 mg PO WITHLUNCH 02/03/19 [History] Denosumab [Prolia] 60 mg SQ ASDIRECTED 02/03/19 [History] Doxycycline Hyclate 100 mg PO BID 02/03/19 [History] L Acidophil/B Lactis/B Longum [Florajen3] 460 mg PO WITHLUNCH 02/03/19 [History] Niacinamide [Niacin] 500 mg PO TID 02/03/19 [History] Ondansetron [Zofran] 4 mg PO Q6H PRN 02/03/19 [History] Tacrolimus [Protopic] 1 applic TOP BID 02/03/19 [History] predniSONE [Prednisone] 5 mg PO DAILY 02/03/19 [History] Magnesium Oxide 250 mg PO BID #60 tablet 02/06/19 [Rx] Pantoprazole [ProTONIX] 40 mg PO ACBRK #30 tab.cr 02/06/19 [Rx] Patient Handouts: Hyponatremia, Hypomagnesemia Referrals: Toya Perez MD [Ordering Only Provider] - (Follow up with Dr. Perez next week, have magnesium and BMP checked at that visit) - Discharge Summary/Plan Comment DC Time >30 min.: No - General Info Date of Service: 02/06/19 Admission Dx/Problem (Free Text: Hyponatremia Functional Status: Reports: Pain Controlled, Tolerating Diet, Ambulating - Review of Systems General: Reports: Fatigue HEENT: Reports: No Symptoms Pulmonary: Reports: Shortness of Breath. Denies: Cough Cardiovascular: Denies: Chest Pain, Edema, Lightheadedness Gastrointestinal: Reports: Nausea. Denies: Abdominal Pain, Vomiting Genitourinary: Reports: No Symptoms Musculoskeletal: Reports: Arm Pain, Leg Pain Skin: Reports: Other (blistering and bruising noted to arms and legs) Neurological: Reports: No Symptoms - Patient Data Vitals - Most Recent: Last Vital Signs Temp 96.9 F 02/06/19 03:35 Pulse 70 02/06/19 03:35 Resp 20 02/06/19 03:35 BP 128/51 L 02/06/19 03:35 Pulse Ox 96 02/06/19 03:35 Weight - Most Recent: 227 lb 1.6 oz I&O - Last 24 hours: Intake & Output 02/05/19 02/06/19 02/06/19 22:59 06:59 14:59 Intake Total 900 200 Balance 900 200 Lab Results - Last 24 hrs: Laboratory Results - last 24 hr 02/05/19 02/06/19 02/06/19 Range/Units 17:21 07:00 07:51 Sodium 127 L (136-145) mEq/L Potassium 3.8 (3.5-5.0) mEq/L Chloride 89 L (98-106) mEq/L Carbon Dioxide 33 H (21-32) mmol/L BUN 6 L (7-18) mg/dL Creatinine 1.1 H (0.6-1.0) mg/dL Est Cr Clr Drug Dosing 48.31 mL/min Estimated GFR (MDRD) 49 L (>=60) mL/min Glucose 98 (75-99) mg/dL POC Glucose 111 H 97 (75-105) mg/dl Calcium 8.6 (8.4-10.1) mg/dL Magnesium 1.3 L (1.8-2.4) mg/dL Med Orders - Current: Current Medications Acetaminophen (Tylenol) 650 mg PO Q4H PRN PRN Reason: Pain (Mild 1-3)/fever Last Admin: 02/05/19 13:44 Dose: 650 mg Aspirin (Halfprin) [address] [facility] Last Admin: 02/05/19 21:25 Dose: 81 mg Atorvastatin Calcium (Lipitor) [address] [facility] Last Admin: 02/05/19 21:25 Dose: 10 mg Calcium Carbonate/Glycine (Tums) [address] [facility] Last Admin: 02/05/19 12:14 Dose: 500 mg Cholecalciferol (Vitamin D3) [address] [facility] Last Admin: 02/05/19 12:30 Dose: 25 mcg Doxycycline Monohydrate (Vibramycin) [address] [facility] Last Admin: 09/27/19 07:53 Dose: 100 mg Enoxaparin Sodium (Lovenox) [address] [facility] Last Admin: 02/05/19 21:24 Dose: 40 mg Gabapentin (Neurontin) [address] [facility] Last Admin: 02/06/19 07:53 Dose: 600 mg Magnesium Sulfate/Dextrose 2 (gm/ Premix) 200 mls @ 100 mls/hr IV ONETIME ONE Stop: 02/06/19 10:19 Last Admin: 02/06/19 08:31 Dose: 100 mls/hr Losartan Potassium (Cozaar) [address] [facility] Last Admin: 02/05/19 21:29 Dose: 100 mg Magnesium Oxide (Magnesium Oxide) [address] [facility] Last Admin: 02/06/19 07:52 Dose: 250 mg Nicotine (Habitrol) [address] [facility] Last Admin: 02/06/19 07:53 Dose: Not Given Ownmed Niacinamide [Niacin] 500 Mg [address] [facility] Last Admin: 02/06/19 07:55 Dose: 500 mg Ownemed Tacrolimus [Protopic ] 1 Applic [address] [facility] Last Admin: 02/06/19 07:52 Dose: 1 applic Ondansetron HCl (Zofran Odt) 4 mg PO Q6H PRN PRN Reason: Nausea Last Admin: 02/06/19 03:32 Dose: 4 mg Oxybutynin Chloride (Oxybutynin) [address] [facility] Last Admin: 02/06/19 07:53 Dose: 5 mg Pantoprazole Sodium (Protonix) [address] [facility] Last Admin: 02/06/19 08:40 Dose: 40 mg Prednisone (Prednisone) [address] [facility] Stop: 02/08/19 23:59 Last Admin: 02/06/19 07:53 Dose: 5 mg Discontinued Medications Barium Sulfate (Readi-Cat 2) 900 ml PO ONETIME ONE Stop: 02/04/19 09:07 Last Admin: 02/04/19 11:17 Dose: 900 ml Sodium Chloride (Normal Saline) 1,000 mls @ 125 mls/hr IV ASDIRECTED [facility] Last Admin: 02/04/19 15:52 Dose: 125 mls/hr Magnesium Sulfate/Dextrose 2 (gm/ Premix) 200 mls @ 100 mls/hr IV ONETIME ONE Stop: 02/04/19 10:37 Last Admin: 02/04/19 08:55 Dose: 100 mls/hr Magnesium Sulfate/Dextrose 2 (gm/ Premix) 200 mls @ 100 mls/hr IV ONETIME ONE Stop: 02/04/19 18:39 Last Admin: 02/04/19 16:52 Dose: 100 mls/hr Magnesium Sulfate/Dextrose 2 (gm/ Premix) 200 mls @ 100 mls/hr IV ONETIME ONE Stop: 02/05/19 11:08 Last Admin: 02/05/19 09:44 Dose: 100 mls/hr Potassium Chloride 20 meq/ (Premix) 100 mls @ 25 mls/hr IV ONETIME ONE Stop: 02/05/19 13:08 Last Admin: 02/05/19 12:07 Dose: 25 mls/hr Iopamidol (Isovue-370 (76%)) 160 ml IV ONETIME ONE Stop: 02/04/19 09:07 Last Admin: 02/04/19 11:17 Dose: 160 ml - Exam General: Reports: Alert, Oriented HEENT: Reports: Mucous Membr. Moist/Wann Neck: Reports: Supple Lungs: Reports: Clear to Auscultation, Normal Respiratory Effort Cardiovascular: Reports: Regular Rate, Regular Rhythm GI/Abdominal Exam: Normal Bowel Sounds, Soft, Non-Tender Extremities: Other (blisters noted on arms, legs. Purpuric lesions noted to arms. ) Neurological: Reports: No New Focal Deficit
[2019-02-06 08:52] VITALS: BP 115/47
== END 2019-02-06 13:29 | disposition home or self-care (01) | DRG 644 ==
LOC: UNDOADMIN 18:51 → CC.MS 18:51
PROVIDERS: ADMIT Physician Assistant Medical; ATTEND Family Medicine
DX: E22.2 Syndrome of inappropriate secretion of antidiuretic hormone (principal); L12.30 Acquired epidermolysis bullosa, unspecified; R23.8 Other skin changes; E83.42 Hypomagnesemia; F32.9 Major depressive disorder, single episode, unspecified; I10 Essential (primary) hypertension; F10.10 Alcohol abuse, uncomplicated; R91.8 Other nonspecific abnormal finding of lung field; Z88.8 Allergy status to other drugs, medicaments and biological substances; Z79.82 Long term (current) use of aspirin; Z79.899 Other long term (current) drug therapy; Z88.0 Allergy status to penicillin; Z79.84 Long term (current) use of oral hypoglycemic drugs; Z90.89 Acquired absence of other organs
CPT/HCPCS: 36415; 70450; 71260; 74177; 80048; 82962; 83735; A9270-GY; J1650; J3475; J3480; J7030; Q9967